=== PATIENT | male | born 1965 | race Caucasian/White ===

== ENCOUNTER 2017-11-02 09:23 | Day surgery (SDC) | payer OTHER ==
[2017-11-02] MEDS ORDERED: MIDAZOLAM 1 MG/ML 2 ML INJ ×3 (11:04→11:05)
[2017-11-02] MEDS ORDERED: FENTAnyl 50 MCG/ML VIAL (11:04)
== END 2017-11-02 17:03 | disposition home or self-care (01) ==
LOC: GIL 09:23
DX: Z12.11 Encounter for screening for malignant neoplasm of colon (principal); K63.5 Polyp of colon; K62.1 Rectal polyp; K64.4 Residual hemorrhoidal skin tags; K55.20 Angiodysplasia of colon without hemorrhage; Z80.0 Family history of malignant neoplasm of digestive organs
CPT/HCPCS: 45380; 88305